=== PATIENT | male | born 1975 | race Caucasian/White ===

== ENCOUNTER 2017-07-06 05:24 | Emergency (ER) | payer OTHER ==
[~2017-07-06] VITALS: Ht 193 cm; Wt 124.7 kg
[~2017-07-06 05:24] MED LIST: ATIVAN1 MG PO; FLEXERIL10 MG PO; IBUPROFEN800 MG PO; IMITREX50 MG PO
--- NOTE | 2017-07-06 05:30 | ED EYE COMPLAINT ---
History of Present Illness General Chief Complaint: Eye Problems Stated Complaint: " EYES REDNESS,BLURRY,ITCHY" Source: patient Exam Limitations: no limitations Vital Signs & Intake/Output Vital Signs & Intake/Output Vital Signs Date Time Temp Pulse Resp B/P B/P Pulse O2 O2 Flow FiO2 Mean Ox Delivery Rate 07/06 0531 97.8 89 18 159/97 100 Room Air Allergies Coded Allergies: No Known Drug Allergies (06/07/15) Reconcile Medications CYCLOBENZAPRINE HCL (Flexeril) 10 MG TAB 1 TAB PO 4 TIMES/DAY PRN MUSCLE SPASM Ibuprofen 800 MG TAB 1 TAB PO 4 TIMES/DAY PRN PAIN Lorazepam (Ativan) 1 MG TAB 1 TAB PO TID PRN ANXIETY TEN...[id number] Olopatadine HCl (Pataday) 0.2 % DROPS 2 GTT OPH TID PRN ALLERGIES/EYE ITCHING Polytrim (Polytrim Eye Drops) 10,000 UNIT-1 MG/ML DROPS 2 GTT OPH 4 TIMES/DAY EYE INFECTION x 7 days Sumatriptan Succinate (Imitrex) 50 MG TAB 1-2 TAB PO Q2HR PRN MIGRAINE MAX 6 PILLS IN 24 HOURS Triage Nurses Notes Reviewed? yes Onset: Gradual Duration: day(s): Timing: recent history Injury Environment: home Severity: moderate Modifying Factors: Improves With: rest. Left Eye Associated Symptoms: burning, itching, DISCHARGE Right Eye Associated Symptoms: burning, itching, DISCHARGE HPI: 41 YO gentleman presents with bilateral eye watering, itchiness that started last night. 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 He notes mild-moderate sinus congestion. He has no vision changes. He is otherwise well. Past History Travel History Traveled to [place] past 21 day No Medical History Any Pertinent Medical History? see below for history Neurological: tension and migraine headaches EENT: NONE Cardiovascular: NONE Respiratory: bronchitis Gastrointestinal: GERD Hepatic: NONE Renal: NONE Musculoskeletal: NECK PROBLEM Psychiatric: anxiety, depression Endocrine: NONE Blood Disorders: NONE Cancer(s): NONE DIRECTOR OF PUBLIC HEALTH/Reproductive: NONE Surgical History Surgical History: N Psychosocial History What is your primary language Kazakh Family History Hx Contributory? No Review of Systems Review of Systems Constitutional: Reports: no symptoms. Eyes: Reports: no symptoms. Ear: Reports: no symptoms. Nose: Reports: no symptoms. Mouth: Reports: no symptoms. Throat: Reports: no symptoms. Respiratory: Reports: no symptoms. Cardiovascular: Reports: no symptoms. GI: Reports: no symptoms. Genitourinary: Reports: no symptoms. Musculoskeletal: Reports: no symptoms. Skin: Reports: no symptoms. Neurological/Psychological: Reports: no symptoms. Hematologic/Endocrine: Reports: no symptoms. Immunologic/Allergic: Reports: no symptoms. All Other Systems: Reviewed and Negative Physical Exam General Appearance: well developed/nourished General Inspection: normal inspection Eyelid: normal inspection Conjunctiva/Sclera: injected Cornea: normal inspection EOM: entrapment Pupil: normal accommodation, normal pupil, PERRL General Inspection: normal inspection Eyelid: normal inspection Conjunctiva/Sclera: injected Cornea: normal inspection, examined w/fluorescein EOM: intact Pupil: normal pupil Physical Exam Head: atraumatic Ears: Bilateral: canal normal. Nose: normal inspection Mouth/Throat: normal mouth inspection Neck: normal inspection Cardiovascular/Respiratory: normal breath sounds Neurologic/Psych: no motor/sensory deficits, awake, alert, oriented x 3 Skin: intact, normal color, warm/dry Progress Differential Diagnosis: conjunctivitis Plan of Care: conjucntivitis is most likely diagnosis... discussed alterantive diagnoses.... advocated anti histamine and antibiotic.... pt is well appearing . Departure Departure Disposition: HOME OR SELF CARE Condition: Stable Clinical Impression Primary Impression: Conjunctivitis Referrals: Cami BELL,Winston Modi (PCP/Family) Departure Forms: Customer Survey General Discharge Information Prescriptions: Current Visit Scripts Olopatadine HCl (Pataday) 2 GTT OPH TID PRN ALLERGIES/EYE ITCHING #1 BOT Ref 1 Polytrim (Polytrim Eye Drops) 2 GTT OPH 4 TIMES/DAY #20 ML x 7 days
[2017-07-06 05:31] VITALS: BP 159/97
[2017-07-06] MEDS ORDERED: PATADAY2.5 ML OPH (05:48)
[2017-07-06] MEDS ORDERED: POLYTRIM EYE DR10 ML OPH (05:48)
== END 2017-07-06 06:02 ==
LOC: ERH 05:24
DX: H10.9 Unspecified conjunctivitis (principal)